=== PATIENT | male | born 1980 | race Caucasian/White ===

== ENCOUNTER 2023-03-31 16:34 | Emergency (ER) | payer BC ==
[~2023-03-31] VITALS: Ht 195.6 cm; Wt 104.3 kg
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
--- NOTE | 2023-03-31 17:12 | NUR ---
Patient discharged to home in stable condition. Written and verbal after care instructions given. Patient verbalizes understanding of instruction.
[2023-03-31 17:13] VITALS: BP 149/87; TEMP 98
== END 2023-03-31 17:13 | disposition home or self-care (01) ==
LOC: ER 16:49
DX: K64.4 Residual hemorrhoidal skin tags (principal); Z90.49 Acquired absence of other specified parts of digestive tract